=== PATIENT | male | born 1990 | race Caucasian/White ===

== ENCOUNTER 2017-12-17 10:38 | Emergency (ER) | payer MEDICAID, SELFPAY ==
[2017-12-17 10:39] VITALS: BP 112/69; PULSE 77; RESP 14; TEMP 37.2; O2SAT 97; BMI 20.4
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
== END 2017-12-17 12:15 | disposition home or self-care (01) ==
PROVIDERS: Emergency Provider Emergency Medicine; Family Provider Internal Medicine; PCP Internal Medicine
DX: S00.83XA Contusion of other part of head, initial encounter (principal); Y04.0XXA Assault by unarmed brawl or fight, initial encounter; Y93.89 Activity, other specified; Y92.9 Unspecified place or not applicable; F11.11 Opioid abuse, in remission; Z72.0 Tobacco use
CPT/HCPCS: 70486; 99282

== ENCOUNTER 2018-12-16 02:37 | Emergency (ER) | payer MEDICAID, SELFPAY ==
[2018-12-16 02:38] VITALS: BP 151/101; PULSE 95; RESP 17; TEMP 36.7; O2SAT 95; BMI 21.1
--- NOTE | 2018-12-16 02:48 | ED.VISSUMM ---
- ER Visit Summary Date of Service: 12/16/18 Chief Complaint: Left ear pain History of Present Illness: The patient is a 28 M who presents with left ear pain. He states he woke with this about 15 minutes ago. Sharp. He rates it as severe. He has had 2 to 3 days of sinus congestion as well. No fevers nausea vomiting. He did not take any medications before presenting here to the emergency department. Physical Examination: Afebrile vitals unremarkable There is a left middle ear effusion and the tympanic membrane is erythematous although I am able to visualize landmarks well it is not bulging Heart regular rate and rhythm Lungs clear Test Results: Not indicated Emergency Department Course and Treatment: Examination is consistent with acute left otitis media. He was given naproxen for pain and will be started on amoxicillin. Patient discharged. Treatment Plan: [] Disposition: Discharge Impression: Acute left otitis media This note was generated with [employer] dictation software. It may contain incorrect words, spelling, and punctuation that were not noted in review of the chart prior to signing ED Disposition - Plan for ED Patient: Referrals: Suzie Chaney MD [Primary Care Provider] -
--- NOTE | 2018-12-16 02:49 | ED.DEP ---
ED Disposition - Plan for ED Patient: Instructions: OTITIS MEDIA, Abx Tx (Adult) Prescriptions: Amoxicillin 1,000 mg PO BID #20 tab Prescription Printed Referrals: Suzie Chaney MD [Primary Care Provider] -
[2018-12-16] MEDS: AMOXICILLIN 500 MG CAPSULE 1000 MG PO (02:51)
[2018-12-16] MEDS: Naproxen 500 MG Tablet PO (02:51)
[2018-12-16 03:07] VITALS: BP 151/101; PULSE 95; RESP 17; O2SAT 96
== END 2018-12-16 03:08 | disposition home or self-care (01) ==
LOC: ED 03:03
PROVIDERS: Emergency Provider Emergency Medicine; Family Provider Internal Medicine; PCP Internal Medicine
DX: H66.92 Otitis media, unspecified, left ear (principal); Z72.0 Tobacco use
CPT/HCPCS: 99283

== ENCOUNTER 2019-05-30 19:05 | Emergency (ER) | payer MEDICAID, SELFPAY ==
[2019-05-30 19:06] VITALS: BP 128/76; PULSE 102; RESP 16; TEMP 36.9; BMI 17.9
--- NOTE | 2019-05-30 19:16 | ED.DCSUM_ITS ---
History of Present Illness Chief Complaint: Eye Problem Detail of Chief Complaint: Right eye pain and redness Informant: Patient Onset: Days - 4 days Context: Gradual Onset Current Severity: Moderate Maximum Severity: Moderate Narrative: Patient states that he woke 4 days ago with foreign body sensation in his right eye. He denies any known injury. Symptoms have continued to worsen since that time. He now has some redness around his eye. No recent URI symptoms. He does not wear glasses or contacts. Past Medical History - Allergies and Home Meds Allergies/Adverse Reactions: Allergies No Known Allergies Allergy (Verified 12/16/18 02:41) Primary Care Physician: NOT,DEFINED [NON-STAFF] - Past Medical History: None Surgical History: no surgical history Smoking Status: Current every day smoker - Family History Maternal Family History: Reports: No pertinent history Paternal Family History: Reports: No pertinent history Review of Systems General: Denies: Chills, Fever Eyes: Reports: - - Pain right eye ENT: Denies: Bilateral ear pain, Rhinorrhea Cardiovascular: Denies: Chest pain Respiratory: Denies: Dyspnea Gastrointestinal: Denies: Abdominal pain, Nausea, Vomiting, Diarrhea Neurological: Denies: Headache Physical Exam Vital Signs/Narrative: Vital Signs Temp Pulse Resp BP 05/30/19 19:06 98.5 F 102 H 16 128/76 H Inital Vital Signs reviewed: Yes General: Well nourished, Well developed Head: Normocephalic Eyes: Perrl, EOMI, - - Mild conjunctival injection. He has periorbital erythema. Extraocular movements are fully intact with no pain. ENT: Moist mucous membranes Cardiovascular: Regular rate, Regular rhythm Respiratory: No distress, CTA bilaterally Abdomen: Soft, Nontender Skin: - - Erythema around right eye Neurological: Alert, Oriented x3 Psychological: Normal affect Diagnostic/Tx/Re-eval - Medical Decision Making I was examined with slit lamp. He has some mild discharge but no ulcerations or foreign bodies are noted. Fluorescein is applied and there is no dye uptake. Patient tells me the area around his eye hurts worse than the eyeball itself. He will be treated with Augmentin for periorbital cellulitis. I encouraged follow-up with ophthalmology on Saturday. If patient worsens he is to return to the emergency room. ED Disposition - Plan for ED Patient: Disposition: Home or Assisted Living Diagnosis: Periorbital cellulitis Instructions: Deana-Orbital Cellulitis Prescriptions: Amox/Clavulanate Tablet [Augmentin Tablet] 875 mg PO Q12H #20 tab Transmission Status: Pending to [facility] Referrals: Philip Quick MD [STAFF PHYSICIAN] - 2 Days
[2019-05-30] MEDS: Fluorescein 1 MG STRIP 1 STRIP RIGHT EYE (19:21)
[2019-05-30] MEDS: Amox/Clavulanate 875 MG Tablet PO (19:21)
== END 2019-05-30 19:48 | disposition home or self-care (01) ==
PROVIDERS: Emergency Provider Emergency Medicine
DX: L03.213 Periorbital cellulitis (principal); F17.200 Nicotine dependence, unspecified, uncomplicated
CPT/HCPCS: 99282

== ENCOUNTER → 2020-04-07 16:47 | Outpatient (CLI) | payer MEDICAID, SELFPAY ==
[2020-04-07 17:48] LABS: Absolute Lymphocyte Count 2.68 X10^3/uL (0.83-4.51); Absolute Neutrophil Count 4.7 X10^3/uL (2.0-7.7); Basophil# 0.06 X10^3/uL; Basophil% 0.7 % (0-1); Eosinophil# 0.21 X10^3/uL; Eosinophils% 2.6 % (0-5); Hematocrit 45.9 % (40-54); Hemoglobin 14.8 g/dL (13.0-16.5); Lymphocyte # 2.68 X10^3/ul (4.0); Lymphocyte % 32.7 % (19-41); Mean Corp Hgb Conc 32.2 g/dL (32-36); Mean Corpuscular Volume 93.1 fL (80-94); Mean Platelet Vol. 10.5 fl (6.2-12.0); Monocyte# 0.55 X10^3/uL; Monocyte% 6.7 % (0-10); NRBC Flagged by Analyzer 0 % (0-5); Neutrophil # 4.67 X10^3/uL (2.7-7.7); Neutrophil % 56.9 % (47-70); Platelet Count 226 K/mm3 (150-450); RBC Distribution Width CV 12.9 % (11.6-14.6); RBC Distribution Width SD 44.2 fl (35.1-43.9); Red Blood Count 4.93 M/mm3 (4.6-6.2); White Blood Count 8.2 K/mm3 (4.4-11.0)
[2020-04-07 18:19] LABS: ALB/GLOB Ratio 1.7 RATIO (0.9-2.4); AST(SGOT) 13 U/L (15-37); Alanine Aminotransfer ALT/SGPT 24 U/L (16-61); Albumin, Serum 4.5 g/dL (3.2-5.0); Alkaline Phosphatase 64 U/L (45-117); Anion Gap 5 (5-15); BUN 11 mg/dL (7-18); BUN/Creat Ratio 10.2 RATIO (10-20); Calcium,Total 9.1 mg/dL (8.5-10.1); Chloride 109 mmol/L (98-107); Creatinine, Serum 1.08 mg/dL (0.70-1.30); EST Glomerular Filtration Rate 87 mL/min (>60); Est Glom Filt Rate - Afr Amer 105 mL/min (>60); Globulin 2.7 g/dL (2.2-4.2); Glucose 103 mg/dL (74-106); Potassium 3.6 mmol/L (3.5-5.1); Protein, Total 7.2 g/dL (6.4-8.2); Sodium Level 141 mmol/L (136-145)
[2020-04-08 09:55] LABS: Hemoglobin A1c 5.2 % (3.8-5.6)
[2020-04-08 11:26] LABS: HIV - WCH Non-Reactive (Nonreactive); Hepatitis B Surface Antibody Reactive; Hepatitis B Surface Antigen Non-Reactive (Nonreactive); Hepatitis C Antibody Non-Reactive (Nonreactive); Rubella IgG Reactive (Nonreactive)
== END ==
PROVIDERS: PCP Family Medicine; Referring Provider Family Medicine; Visit Provider Family Medicine
DX: I26.99 Other pulmonary embolism without acute cor pulmonale (principal); F19.11 Other psychoactive substance abuse, in remission; R73.09 Other abnormal glucose
CPT/HCPCS: 36415; 80053; 83036; 85025; 86703; 86706; 86762; 86803; 87340